=== PATIENT | female | born 1985 | race Caucasian/White ===

== ENCOUNTER 2017-05-01 18:03 | Emergency (ER) | payer MEDICAID ==
[~2017-05-01] VITALS: Ht 149.9 cm; Wt 51.3 kg
[2017-05-01 18:10] VITALS: BP 102/75
--- NOTE | 2017-05-01 19:36 | NUR ---
PT TAKEN TO BED 8
--- NOTE | 2017-05-01 19:47 | NUR ---
31Y/F PT. PRESENTS TO ED WITH C/O N/V/D X 6 DAYS. PT. STATES HAVING N/V/D AFTER HAD SHRIMP COCTAIL, NO FEVER, TODAY N/V X, NO DIARRHEA. NO MEDICAL HX. AAO X4, AMBULATORY WITH STEADY GAIT. RESPIRATIONS ROOM AIR, EVEN AND UNLABORED. SKIN WARM AND DRY. ABDOMEN SOFT AND NON-DISTENDED. C/O ABDOMINAL PAIN 10/10. VSS, NO S/SX OF DISTRESS AT THIS TIME. BED LOW POSITION, ALL SIDERAILS UP. ER MD MADE AWARE OF PT. STATUS.
--- NOTE | 2017-05-01 19:52 | NUR ---
Dr. Ellis evaluating patient at bedside.
[2017-05-01] MEDS ORDERED: ONDANSETRON 4 MG ODT PO ONE (20:15)
--- NOTE | 2017-05-01 20:30 | NUR ---
Patient discharged with v/s stable. Written and verbal after care instructions given and explained. Patient alert, oriented and verbalized understanding of instructions. Ambulatory with steady gait. All questions addressed prior to discharge. ID band removed. Patient advised to follow up with PMD. Rx of ZOFRAN 4 MG given. Patient educated on indication of medication including possible reaction and side effects. Opportunity to ask questions provided and answered.
[2017-05-01 20:33] VITALS: BP 127/79
== END 2017-05-01 20:30 | disposition home or self-care (01) ==
LOC: MED 18:03
DX: A08.4 Viral intestinal infection, unspecified (principal)
CPT/HCPCS: 81002; 81025; 99283; S0119